=== PATIENT | male | born 1970 | race American Indian/Alaskan Native ===

== ENCOUNTER 2017-04-14 19:32 | Inpatient (IN) | payer OTHER ==
[2017-04-14] MEDS ORDERED: NITRO-BID 2% TP ONE (20:10)
[2017-04-14] MEDS ORDERED: ZOFRAN IV ONE (20:10)
--- NOTE | 2017-04-14 20:30 | Emergency Department Report ---
HPI - General Chief Complaint: Chest Pain Time Seen by Provider: 04/14/17 20:09 - HPI HPI: Room 21 The patient is a 47-year-old male presenting with a chief complaint of chest pain. The patient states this morning he developed substernal chest pain that was sharp in nature. The patient states he took aspirin 325 mg po and the pain improved after 7 minutes. Patient states the pain returned in addition to substernal soreness he has pain at the left neck. The patient states he took a second aspirin 325 mg at approximately 16:00. Patient does admit to shortness of breath but denies nausea vomiting or diaphoresis. The patient states his last stress test occurred approximately one year ago but he has never had a cardiac catheterization Location: Chest Duration: Began this morning Quality: Sharp/soreness Severity: Moderate Modifying factors: [see above] Context: [see above] Mode of transportation: [not driving] ED Past Medical Hx - Past Medical History Hx Hypertension: Yes Additional medical history: herniated disc x 2 in neck, hypercholesterolemia - Surgical History Past Surgical History?: No - Family History Family history: no significant - Social History Smoking Status: Never Smoker Substance Use Type: None (denies illicit drug use), Alcohol (occasional) - Medications Home Medications: Home Medications Medication Instructions Recorded Confirmed Last Taken Type Aspirin [Aspirin TAB] 325 mg PO QDAY 06/01/13 04/04/15 04/04/15 History ED Review of Systems ROS: Stated complaint: CP Other details as noted in HPI Constitutional: denies: diaphoresis Respiratory: shortness of breath Cardiovascular: chest pain Gastrointestinal: denies: nausea, vomiting Physical Exam - Physical Exam Vital Signs: Vital Signs 04/14/17 19:41 Temperature 98 F Pulse Rate 67 Respiratory 18 Rate Blood Pressure 151/86 O2 Sat by Pulse 100 Oximetry Physical Exam: GENERAL: The patient is well-developed well-nourished male lying on stretcher not appearing to be in acute distress. [] HEENT: Normocephalic. Atraumatic. Extraocular motions are intact. Patient has moist mucous membranes. NECK: Supple. Trachea midline CHEST/LUNGS: Clear to auscultation. There is no respiratory distress noted. HEART/CARDIOVASCULAR: Regular. There is no tachycardia. There is no gallop rub or murmur. ABDOMEN: Abdomen is soft, nontender. Patient has normal bowel sounds. There is no abdominal distention. SKIN: There is no rash. There is no edema. There is no diaphoresis. NEURO: The patient is awake, alert, and oriented. The patient is cooperative. The patient has normal speech and gait. MUSCULOSKELETAL: There is no evidence of acute injury. ED Course Vital Signs 04/14/17 19:41 Temperature 98 F Pulse Rate 67 Respiratory 18 Rate Blood Pressure 151/86 O2 Sat by Pulse 100 Oximetry - Consultations Consultation #1: 04/14/17 19:55 EKG and previous EKG sent to Dr. Jeong- case discussed. Does not feel it represents a STEMI ED Medical Decision Making - Lab Data Result diagrams: 04/14/17 20:10 04/14/17 20:10 Laboratory Tests 04/14/17 04/14/17 20:10 20:10 WBC 7.8 RBC 4.48 Hgb 12.5 Hct 38.0 MCV 85 MCH 28 MCHC 33 RDW 14.3 Plt Count 297 Lymph % (Auto) 27.8 [place] % (Auto) 9.4 H Eos % (Auto) 1.3 Baso % (Auto) 1.3 Lymph # 2.2 Camp # 0.7 Eos # 0.1 Baso # 0.1 Seg Neutrophils % 60.2 Seg Neutrophils # 4.7 Sodium 136 L Potassium 6.0 H Chloride 99.5 Carbon Dioxide 25 Anion Gap 18 BUN 15 Creatinine 1.0 Estimated GFR > 60 BUN/Creatinine Ratio 15 Glucose 88 Calcium 8.8 CK-MB (CK-2) 4.2 H Troponin T < 0.010 - EKG Data -: EKG Interpreted by Me EKG shows normal: sinus rhythm Rate: normal - EKG Data When compared to previous EKG there are: no significant change Interpretation: unchanged when compared t (04/05/2015) - Radiology Data Radiology results: image reviewed (chest x-ray) interpreted by me: Chest x-ray-no focal infiltrates, no pneumothorax - Differential Diagnosis ACS, GERD, pericarditis Critical care attestation.: If time is entered above; I have spent that time in minutes in the direct care of this critically ill patient, excluding procedure time. ED Disposition Clinical Impression: Chest pain Disposition: DC09 OP ADMIT IP TO THIS HOSP Is pt being admited?: Yes Does the pt Need Aspirin: Yes Condition: Fair Instructions: Chest Pain (ED) Referrals: VENICE DEE MD [Primary Care Provider] - 3-5 Days Time of Disposition: 21:00 (hospitalist paged)
[2017-04-14] MEDS: MORPHINE IV ONE ×2 (20:35→20:50)
[2017-04-14 20:38] LABS: Basophils % (Auto) 1.3 % (0.0-1.8); Eosinophils % (Auto) 1.3 % (0.0-4.3); Hemoglobin 12.5 gm/dl (11.8-15.2); Mean Corpuscular HGB Conc 33 % (32-34); Mean Corpuscular Hemoglobin 28 pg (28-32); Mean Corpuscular Volume 85 fl (84-94); Platelet Count 297 K/mm3 (140-440); Red Blood Count 4.48 M/mm3 (3.65-5.03); Red Cell Distribution Width 14.3 % (13.2-15.2); White Blood Count 7.8 K/mm3 (4.5-11.0)
[2017-04-14 20:44] LABS: Creatine Kinase MB 4.2 ng/mL (0.0-4.0)
[2017-04-14 20:45] LABS: Anion Gap 18 mmol/L; BUN/Creatinine Ratio 15; Blood Urea Nitrogen 15 mg/dL (9-20); Calcium 8.8 mg/dL (8.4-10.2); Carbon Dioxide 25 mmol/L (22-30); Chloride 99.5 mmol/L (98-107); Glucose 88 mg/dL (75-100); Sodium 136 mmol/L (137-145)
[2017-04-14 20:48] LABS: Creatine Kinase 749 units/L (55-170)
[2017-04-14] MEDS ORDERED: MORPHINE IV ONE (20:51)
[2017-04-14] MEDS ORDERED: MORPHINE IV PRN (21:33)
[2017-04-14] MEDS ORDERED: ZOFRAN IV PRN (21:33)
[2017-04-14] MEDS ORDERED: TYLENOL PO PRN (21:33)
[2017-04-14] MEDS ORDERED: KIONEX PO ONE (21:33)
[2017-04-14] MEDS ORDERED: MILK OF MAGNESIA PO PRN (21:33)
[2017-04-14] MEDS ORDERED: DULCOLAX PR PRN (21:33)
--- NOTE | 2017-04-14 21:38 | History and Physical Report ---
History of Present Illness Date of examination: 04/14/17 History of present illness: 45-year-old man with a history of hypertension, hyperlipidemia, was brought to the emergency room for chest pain that started today. Pain is in the epigastric area, radiating to the left sneck, which he describes as a sharp pain, intermittent in nature lasting for 7 minutes, intensity 5/10, he cannot identify exacerbating or relieving factors. He denies nausea vomiting, diaphoresis, palpitation, shortness of breath Review Of Systems: Constitutional: no weight loss Ears, eyes, nose, mouth and throat: no nasal congestion, no nasal discharge, no sinus pressure, blurry vision, diplopia Neck: No neck pain or rigidity. Cardiovascular: no orthopnea, palpitations Respiratory: No cough Gastrointestinal:no abdominal pain, hematochezia Genitourinary : no dysuria, frequency , hematuria Musculoskeletal: no muscle ache Integumentary: no rash, no pruritis Neurological: no parathesias, focal weakness Endocrine: no cold or heat intolerance, no polyuria or polydipsia Hematologic/Lymphatic: no easy bruising, no easy bleeding, no gland swelling Allergic/Immunologic: no urticaria, no angioedema. PAST MEDICAL HISTORY:hypertension, hyperlipidemia PAST SURGICAL HISTORY: neck surgery FAMILY HISTORY: Hypertension SOCIAL HISTORY: Denies alcohol, tobacco, drugs Medications and Allergies Allergies Allergy/AdvReac Type Severity Reaction Status Date / Time No Known Allergies Allergy Verified 04/04/15 16:23 Home Medications Medication Instructions Recorded Confirmed Last Taken Type Atorvastatin Calcium [Lipitor] 10 mg PO DAILY 04/14/17 04/14/17 04/14/17 History Lisinopril [Zestril] 10 mg PO DAILY 04/14/17 04/14/17 04/14/17 History Exam - Physical Exam Narrative exam: Gen. appearance: Patient lying in bed in no acute distress HEENT: Normocephalic/atraumatic, pupils equal round reactive to light, extra alkaline movement intact, no scleral icterus, no JVD or thyromegaly or nodule, neck is supple, mucous membrane moist, no erythema or exudate Heart: S1-S2, regular rate and rhythm Lungs: Clear to auscultation bilateral breathing comfortable Abdomen: Positive bowel sounds, nontender, nondistended, no organomegaly Extremities: no edema, cyanosis, clubbing Neuro:: Oriented 3 , cranial nerves II-12 intact,slurred speech, left hemiparesis Skin: No rash, nodules, warm dry - Constitutional Vitals: Temp Pulse Resp BP Pulse Ox 98.4 F 72 20 140/90 99 04/14/17 20:40 04/14/17 20:44 04/14/17 20:40 04/14/17 20:35 04/14/17 20:40 Results - Labs CBC & Chem 7: 04/14/17 20:10 04/14/17 20:10 Labs: Abnormal lab results 04/14/17 04/14/17 Range/Units 20:10 20:10 [place] % (Auto) 9.4 H (0.0-7.3) % Sodium 136 L (137-145) mmol/L Potassium 6.0 H (3.6-5.0) mmol/L Total Creatine Kinase 749 H (55-170) units/L CK-MB (CK-2) 4.2 H (0.0-4.0) ng/mL - Imaging and Cardiology EKG: image reviewed Chest x-ray: image reviewed Assessment and Plan Assessment Atypical Chest pain Hyperkalemia secondary to DEBBI inhibitor Hypertension Hyperlipidemia Plan Admit to medicine Check cardiac enzymes, stress test Give Kayexalate, hold lisinopril Start aspirin, morphine, dvt prophalaxis Continue appropiate outpatient medications
--- NOTE | 2017-04-14 22:01 | XRay Report ---
FINAL REPORT PROCEDURE: Chest. TECHNIQUE: Portable AP view. HISTORY: Chest pain. COMPARISON: No prior studies are available for comparison. FINDINGS: The heart and mediastinum appear normal. The lungs are clear and well expanded. There are no pleural effusions. The soft tissues and regional skeleton are unremarkable. IMPRESSION: Negative portable chest.
[2017-04-14 22:19] LABS: Creatine Kinase MB 4.3 ng/mL (0.0-4.0)
[2017-04-14 22:20] LABS: Creatine Kinase 749 units/L (55-170)
[2017-04-15 03:55] LABS: Basophils % (Auto) 0.6 % (0.0-1.8); Eosinophils % (Auto) 1.5 % (0.0-4.3); Hematocrit 35.9 % (35.5-45.6); Hemoglobin 11.7 gm/dl (11.8-15.2); Mean Corpuscular HGB Conc 33 % (32-34); Mean Corpuscular Hemoglobin 27 pg (28-32); Mean Corpuscular Volume 84 fl (84-94); Platelet Count 249 K/mm3 (140-440); Red Cell Distribution Width 14.2 % (13.2-15.2); White Blood Count 5.3 K/mm3 (4.5-11.0)
[2017-04-15 04:04] LABS: Anion Gap 14 mmol/L; BUN/Creatinine Ratio 14; Blood Urea Nitrogen 13 mg/dL (9-20); Calcium 8.5 mg/dL (8.4-10.2); Carbon Dioxide 27 mmol/L (22-30); Chloride 105.1 mmol/L (98-107); Glucose 97 mg/dL (75-100); Sodium 142 mmol/L (137-145)
[2017-04-15 04:09] LABS: Creatine Kinase MB 3.5 ng/mL (0.0-4.0)
[2017-04-15 04:10] LABS: Creatine Kinase 484 units/L (55-170)
[2017-04-15 04:22] LABS: Potassium 4.5 mmol/L (3.6-5.0)
[2017-04-15] MEDS ORDERED: LOVENOX SUB-Q SCH (10:00)
--- NOTE | 2017-04-15 10:29 | Discharge Summary ---
<JIM REINOSO - Last Filed: 04/18/17 07:43> Providers - Providers Date of Admission: 04/14/17 21:33 Date of discharge: 04/15/17 Attending physician: LEIGHA FOLEY MD Primary care physician: VENICE DEE Hospitalization Condition: Stable Hospital course: Patient is a 45-year-old male with past medical history of hypertension, hyperlipidemia, presents to the emergency department for a chief complaint left-sided chest pain. Patient was diagnosed with chest pain, hypertension, hyperlipidemia, Rhabdomyolysis, hyperkalemia. Patient presented with atypical chest pain, ACS was ruled out, stress test normal MPI, negative cardiac enzymes, ECGs shows normal sinus rythm, CXR WNL. Patient chest pain probably from musculoskeletal. He was treated with IV fluid hydration and antihypertensive medications. Patient is clinically improved and stable for discharge. Patient advised to follow-up with her primary care provider. Discharge Diagnosed Chest Pain due to Costochondritis hypertension Hyperlipidemia, Hyperkalemia. Hyponatremia Rhabdomyolysis Disposition: TO HOME OR SELFCARE Time spent for discharge: 33 minutes. Core Measure Documentation - Palliative Care Palliative Care/ Comfort Measures: Not Applicable - Core Measures Any of the following diagnoses?: none Exam - Constitutional Vitals: Temp Pulse Resp BP Pulse Ox 98.5 F 56 L 22 137/63 96 04/15/17 05:01 04/15/17 08:42 04/15/17 05:01 04/15/17 05:01 04/15/17 05:01 General appearance: Present: no acute distress - EENT Eyes: Present: PERRL ENT: hearing intact - Neck Neck: Present: supple - Respiratory Respiratory effort: normal Respiratory: bilateral: CTA - Cardiovascular Rhythm: regular Heart Sounds: Present: S1 & S2 - Abdominal General gastrointestinal: Present: soft, non-tender Male genitourinary: Present: deferred - Rectal Rectal Exam: deferred - Integumentary Integumentary: Present: clear, warm, dry - Musculoskeletal Musculoskeletal: strength equal bilaterally - Psychiatric Psychiatric: appropriate mood/affect - Neurologic Neurologic: CNII-XII intact - Allied Health Allied health notes reviewed: nursing Plan Weight Bearing Status: Weight Bear as Tolerated Diet: low fat, low cholesterol, low salt Follow up with: VENICE DEE MD [Primary Care Provider] - 3-5 Days <LEIGHA FOLEY - Last Filed: 04/25/17 18:27> Providers - Providers Date of Admission: 04/14/17 21:33 Attending physician: LEIGHA FOLEY MD Primary care physician: VENICE DEE Hospitalization Reason for admission: CHEST PAIN Hospital course: I saw and evaluated the patient. I agree with the findings and the plan of care as documented in the Nurse Practitioner's~note, with the following corrections and additions. Exam - Constitutional Vitals: Temp Pulse Resp BP Pulse Ox 98.0 F 81 18 125/71 91 04/15/17 11:30 04/15/17 11:30 04/15/17 11:30 04/15/17 11:30 04/15/17 11:30
[2017-04-15] MEDS ORDERED: NACL 0.9% 1000 ML 1,000 ML IV SCH (11:00)
[2017-04-15 13:46] VITALS: BP 125/71
--- NOTE | 2017-04-16 00:15 | Treadmill Report ---
INDICATION: Chest pain. ORDERING PHYSICIAN: Rina Fried MD After obtaining written consent, the patient underwent a stress Dwain protocol. The patient exercised for 10 minutes and 21 seconds with no limiting chest pain or shortness of breath. No ischemic EKG changes were recorded. Appropriate blood pressure response to exercise. IMPRESSION: This is a negative treadmill stress test with a low risk for any cardiovascular events. JOB# [id number] ROSEANN/SULMA
== END 2017-04-15 16:05 | disposition home or self-care (01) | DRG 206 ==
LOC: ED 19:32 → 4A 21:33
PROVIDERS: ADMIT Internal Medicine; ATTEND Internal Medicine
DX: M94.0 Chondrocostal junction syndrome [Tietze] (principal); E87.1 Hypo-osmolality and hyponatremia; M62.82 Rhabdomyolysis; E87.5 Hyperkalemia; I10 Essential (primary) hypertension; E78.00 Pure hypercholesterolemia, unspecified; Z79.82 Long term (current) use of aspirin; Z82.49 Family history of ischemic heart disease and other diseases of the circulatory system; T46.4X5A Adverse effect of angiotensin-converting-enzyme inhibitors, initial encounter
CPT/HCPCS: 36415; 71010; 80048; 82550; 82553; 84484; 85025; 93005; 93010; 93017; 96374; 96375; 96376; 99285; J1650; J2270; J2405; J7030